=== PATIENT | male | born 1980 | race Caucasian/White ===

== ENCOUNTER 2024-10-26 00:45 | Emergency (ER) | payer MEDICAID ==
[~2024-10-26] VITALS: Ht 175.3 cm; Wt 100.0 kg
[2024-10-26 00:55] VITALS: O2SAT 100
[2024-10-26] MEDS: KETOROLAC 15MG/ML VIAL IM ONE (02:11)
[2024-10-26] MEDS: TETANUS, DIPHTHERIA, PERTUSSIS VAC/PF 0.5ML (>10YR OLD) IM ONE (02:13)
[2024-10-26] MEDS: LIDOCAINE HCL 1% 20ML VIAL INFIL ONE (02:27)
[2024-10-26] MEDS ORDERED: AMOX1TAB16 MT (02:29)
[2024-10-26] MEDS ORDERED: NAPR-681 MT (02:29)
[2024-10-26] MEDS ORDERED: AMLO10TA80 MT (02:29)
[2024-10-26 03:05] VITALS: BP 187/122; PULSE 84; RESP 16; TEMP 36.7; O2SAT 98
[2024-10-26] MEDS: AMLODIPINE 10MG TABLET PO ONE (03:05)
== END 2024-10-26 03:14 | disposition home or self-care (01) ==
LOC: ER 00:45
DX: L03.011 Cellulitis of right finger (principal); Z79.1 Long term (current) use of non-steroidal anti-inflammatories (NSAID); Z79.899 Other long term (current) drug therapy
CPT/HCPCS: 90715; 10060; 90471; 96372; 99284; J1885; J2003; Z7610 ×5